=== PATIENT | male | born 1945 | race Caucasian/White ===

== ENCOUNTER 2018-01-15 12:12 | Inpatient (IN) | payer MEDICARE, BC ==
[2018-01-15] MEDS ORDERED: Lidocaine 1% (PF) 30 ML VIAL ONE (12:14)
[2018-01-15] MEDS ORDERED: Furosemide 40 MG/4 ML VIAL ONE (12:22)
[2018-01-15] MEDS ORDERED: niCARdipine 20MG In NaCl 20 MG/200 ML BAG ONE (12:22)
[2018-01-15] MEDS ORDERED: Morphine 4 MG/ML VIAL ONE (12:24)
[2018-01-15 12:32] LABS: #Basophils 0.1 thou/uL (0.0-0.2); #Eosinphils 0.5 thou/uL (0.0-0.7); #Monocytes 1.1 thou/uL (0.11-0.59); #Neutrophils 7.4 thou/uL (1.40-6.50); %Basophils 0.9 % (0.0-1.0); %Eosinophils 3.9 % (0.0-10.0); %Lymphocytes 30.3 % (21.0-51.0); %Monocytes 8.4 % (0.0-10.0); %Neutrophils 56.5 % (42.0-75.0); Hemoglobin 14.8 g/dL (14.0-18.0); Mean Corpuscular HGB CONC 31.7 g/dL (32.0-36.0); Mean Corpuscular Hemoglobin 29.2 pg (27.0-31.0); Mean Corpuscular Volume 92.3 fl (80.0-94.0); Mean Platelet Volume 6.8 fL (7.4-10.4); Platelet Count 412 thou/uL (130-400); RBC Distribution Width 14.4 % (11.5-14.5); Red Blood Cell (RBC) Count 5.07 mill/uL (4.70-6.10); White Blood Cell (WBC) Count 13.1 thou/uL (4.8-10.8)
[2018-01-15 12:37] LABS: PTT 27.4 SEC (22.9-36.1); Prothrombin Time 13.2 SEC (12.0-14.7)
[2018-01-15 12:43] LABS: Base Excess-Venous -3.2 mmol/L (0 (+/- 2.5)); Bicarbonate (HCO3v) 23.4 mmol/L (1.0-85.0); CO2 Tension (PvCO2) 46.3 mmHg (41.0-51.0); Calcium, Ionized 1.14 mmol/L (1.12-1.32); Hemoglobin - Calc 17.1 g/dL (12.0-18.0); O2 Tension (PvO2) 39.3 mmHg (35.0-45.0); Potassium 5.1 mmol/L (3.4-4.7); T. Carbon Dioxide 24.8 mmol/L (1.0-85.0); pH (Venous) 7.312 (7.35-7.45); vO2 Saturation-calc 68.7 % (94-98)
[2018-01-15 12:45] LABS: ALT (SGPT) 13 U/L (8-55); AST (SGOT) 26 U/L (5-34); Albumin 4.3 g/dL (3.4-4.8); Alkaline Phosphatase 122 U/L (40-150); Anion Gap 10 mmol/L (10-20); BUN (Urea Nitrogen) 16 mg/dL (8.4-25.7); Bilirubin, Total 0.2 mg/dL (0.2-1.2); CK (CPK) 45 U/L (30-200); Calc. Creatinine Clearance 0 mL/min (70-130); Calcium 9.6 mg/dL (7.8-10.44); Carbon Dioxide 24 mmol/L (23-31); Chloride 108 mmol/L (98-107); Estimated GFR-MDRD Greater than 90; Globulin 3.7 g/dL (2.4-3.5); Glucose 188 mg/dL (80-115); Potassium 4.4 mmol/L (3.5-5.1); Sodium 138 mmol/L (136-145)
[2018-01-15 12:49] LABS: CKMB 2.8 ng/mL (0-6.6); Troponin I 0.019 ng/mL (< 0.028)
--- NOTE | 2018-01-15 13:09 | RAD ---
PORTABLE CHEST ONE VIEW: Date: 01-15-18 Time: 12:18 p.m. History: Chest pain. FINDINGS/IMPRESSION: Comparison is made with exam of 03-05-17. The heart is enlarged. The lungs are well expanded with bilateral infiltrates/pulmonary vascular ashley estion. No pneumothoraces or large effusions are seen. POS: C
--- NOTE | 2018-01-15 13:09 | PDOC.FPRHP ---
- History of Present Illness Chief Complaint: SOB History of Present Illness: Patient is a 72 year old male with PMHx of CAD with stent placement, COPD, HTN, and a recent AL in Sep 2017 who awoke this morning with SOB, diaphoresis and dyspnea on exertion. His symptoms began around 10 o'clock this morning and only improved with while in transit via EMS where he received duonebs. The patient states that his SOB is better when sitting upright, worse with lying down and he has been coughing up some clear sputum that has worsened since yesterday. He also endorses rhinorrhea over the past couple of days. The patient also suffers from chronic chest pain which is centrally located and sometimes radiates to the L shoulder. His pain is typically present most days and worse with light activity. For his chronic chest pain the patient uses daily nitro patches x3 and was observed to have as many as 7 placed upon arrival to the ED. The patient denies recent history of illness, fever, chills, nausea, vomiting, dysuria, PND, unexpected weight change, constipation, diarrhea, hematochezia. The patient was given 2 duonebs and magnesium by EMS ED Course: The patient was seen in the ED by Dr. David and was given morphine 2mg IVP, Lasix 40mg IVP, and started on a Cardene gtt. - Allergies/Adverse Reactions Allergies Allergy/AdvReac Type Severity Reaction Status Date / Time No Known Allergies Allergy Verified 01/15/18 15:53 - Home Medications Medication Instructions Recorded Confirmed Type Benzonatate 200 mg PO TID PRN 08/11/16 01/15/18 History Finasteride 5 mg PO DAILY 08/11/16 01/15/18 History HYDROcodone/Acetaminophen 1 tab PO Q6HR 08/11/16 01/15/18 History [Hydrocodon-Acetaminophn 10-325] Nitroglycerin [Nitro-Dur Patch] 0.6 mg TOP TID 08/11/16 01/15/18 History Tamsulosin HCl 0.4 mg PO DAILY 08/11/16 01/15/18 History Venlafaxine HCl [Effexor] 150 mg PO BID 08/11/16 01/15/18 History traZODone HCl [Trazodone HCl] 400 mg PO HS 08/11/16 01/15/18 History Aspirin [Aspirin Chewable Tablet] 81 mg PO DAILY 08/12/16 01/15/18 History Furosemide [Lasix] 20 mg PO BID 08/12/16 01/15/18 History Ranolazine [Ranexa] 1,000 mg PO BID 08/12/16 01/15/18 History Finasteride [Proscar] 5 mg PO DAILY 01/15/18 01/15/18 History - History PMHx: 1. CAD s/p AL (2013) 2. HTN 3. COPD 4. HFpEF 5. Anxiety 6. Depression 7. Chronic Back Pain 8. IBS 9. BPH 10. Insomnia 11. GERD PSHx: 1. Cardiac stents x1 2. Sinus sx FHx: Mother - liver cancer Father - Kidney disease Social: Smokes 1ppd cigarettes for the past 50 years. Denies alcohol or drug use. Is . PCP: Ruchi at [facility] - Review of Systems General: denies: fever/chills, weight/appetite/sleep changes Eyes: denies: eye pain, vision changes ENT: reports: rhinorrhea. denies: nasal congestion Respiratory: reports: cough, shortness of breath, exercise intolerance Cardiovascular: reports: chest pain, orthopnea. denies: edema Gastrointestinal: denies: nausea, vomiting, diarrhea, abdominal pain Genitourinary: denies: incontinence, dysuria Skin: denies: rashes, lesions Musculoskeletal: reports: pain (chronic back pain). denies: tenderness Neurological: denies: numbness, syncope - Vital signs BP: 122/77 HR: 104 RR: 33 Tmax: 98.1 Pox: 96% on BiPAP Wt: 57.15kg - Physical Exam Constitutional: awake, alert and oriented, well developed, other (on BiPAP with some respiratory distress) HEENT: normocephalic and atraumatic, PERRLA, EOMI, conjunctiva clear, grossly normal vision, grossly normal hearing, normal nasal mucosa, MMM Neck: supple, trachea midline, no LAD -Heart: tachycardic, systolic and diastolic murmur, no gallops or rubs, no peripheral edema -Lungs: CTAB, poor air movement on BiPAP, no wheezes or rhonchi Abdomen: soft, non-tender, bowel sounds present, no masses/distention Musculoskeletal: normal structure, normal tone, ROM grossly normal Neurological: no focal deficit, CN II-XII intact Skin: good turgor, capillary refill <2 seconds Psychiatric: normal mood and affect, good judgment and insight, intact recent and remote memory FMR H&P: Results - Labs Result Diagrams: 01/15/18 12:18 01/15/18 12:18 Lab results: WBC 13.1 thou/uL (4.8-10.8) H 01/15/18 12:18 Hgb 14.8 g/dL (14.0-18.0) 01/15/18 12:18 Hct 46.8 % (42.0-52.0) 01/15/18 12:18 MCV 92.3 fl (80.0-94.0) 01/15/18 12:18 Plt Count 412 thou/uL (130-400) H 01/15/18 12:18 Neutrophils % 56.5 % (42.0-75.0) 01/15/18 12:18 VBG pCO2 46.3 mmHg (41.0-51.0) 01/15/18 12:26 VBG pO2 39.3 mmHg (35.0-45.0) 01/15/18 12:26 Sodium 138 mmol/L (136-145) 01/15/18 12:18 Potassium 4.4 mmol/L (3.5-5.1) 01/15/18 12:18 Chloride 108 mmol/L (98-107) H 01/15/18 12:18 Carbon Dioxide 24 mmol/L (23-31) 01/15/18 12:18 BUN 16 mg/dL (8.4-25.7) 01/15/18 12:18 Creatinine 0.70 mg/dL (0.6-1.3) 01/15/18 12:18 Glucose 188 mg/dL (80-115) H 01/15/18 12:18 Calcium 9.6 mg/dL (7.8-10.44) 01/15/18 12:18 Total Bilirubin 0.2 mg/dL (0.2-1.2) 01/15/18 12:18 AST 26 U/L (5-34) 01/15/18 12:18 ALT 13 U/L (8-55) 01/15/18 12:18 Alkaline Phosphatase 122 U/L (40-150) 01/15/18 12:18 Creatine Kinase 45 U/L (30-200) 01/15/18 12:18 CK-MB (CK-2) 2.8 ng/mL (0-6.6) 01/15/18 12:18 Serum Total Protein 8.0 g/dL (5.8-8.1) 01/15/18 12:18 Albumin 4.3 g/dL (3.4-4.8) 01/15/18 12:18 - EKG Interpretation EKG: sinus tach, age indetermined septal infarct - Radiology Interpretation Chest x-ray Status: image reviewed by me, report reviewed by me Additional comment: cardiomegaly, bilateral pulmonary vascular congestion FMR H&P: A/P - Problem List (1) Acute respiratory failure with hypoxia Status: Acute Code(s): J96.01 - ACUTE RESPIRATORY FAILURE WITH HYPOXIA (2) Acute on chronic congestive heart failure Status: Acute Code(s): I50.9 - HEART FAILURE, UNSPECIFIED Qualifiers: Heart failure type: diastolic Qualified Code(s): I50.33 - Acute on chronic diastolic (congestive) heart failure (3) Hypertensive urgency Status: Acute Code(s): I16.0 - HYPERTENSIVE URGENCY (4) COPD exacerbation Status: Acute Code(s): J44.1 - CHRONIC OBSTRUCTIVE PULMONARY DISEASE W (ACUTE ) EXACERBATION (5) Anxiety Status: Acute Code(s): F41.9 - ANXIETY DISORDER, UNSPECIFIED (6) Chronic back pain Status: Acute Code(s): M54.9 - DORSALGIA, UNSPECIFIED; G89.29 - OTHER CHRONIC PAIN Qualifiers: Back pain location: low back pain Back pain laterality: unspecified Sciatica presence: unspecified whether sciatica present Qualified Code(s): M54.5 - Low back pain; G89.29 - Other chronic pain; G89.29 - Other chronic pain (7) Hypertension Status: Acute Code(s): I10 - ESSENTIAL (PRIMARY) HYPERTENSION Qualifiers: Hypertension type: essential hypertension Qualified Code(s): I10 - Essential (primary) hypertension (8) Multiple vessel coronary artery disease Status: Acute Code(s): I25.10 - ATHSCL HEART DISEASE OF [place] CORONARY ARTERY W/O ANG PCTRS (9) Tobacco abuse Status: Acute Code(s): Z72.0 - TOBACCO USE (10) GERD (gastroesophageal reflux disease) Status: Acute Code(s): K21.9 - GASTRO-ESOPHAGEAL REFLUX DISEASE WITHOUT ESOPHAGITIS Qualifiers: Esophagitis presence: without esophagitis Qualified Code(s): K21.9 - Gastro -esophageal reflux disease without esophagitis - Plan Acute Hypoxic Respiratory Failure likely 2/2 COPD exacerbation caused by URI that has ultimately caused the patient to go into HTN urgency and a CHF exacerbation The patient is now overloaded in his lungs and requiring BiPAP. His breathing status improved some with duonebs and he got 40 mg IV lasix in the ED and was placed on BiPAP. He is now satting 100%. -Admit to IMCU -Consult pulm, appreciate recs -Continue BiPAP -Solumedrol -Duonebs -Lasix -Monitor O2 sats Acute on Chronic CHF Exacerbation Patient has h/o HFpEF -Echo -Lasix 40mg IV BID, will consider titrating down tomorrow if patient's breathing status continues improving -Strict I/O's -Fluid Restrict -Daily Weights COPD Exacerbation -Solumedrol -Duonebs HTN Urgency SBP initially 230's in the ED. Patient was placed on a cardene gtt. This has been d/c'd as pt BP has improved significantly. -Monitor BP closely -Hydralazine prn SBP > 180 CAD s/p AL Patient has severe CAD. There was initially concern for STEMI, but Dr. Mccormick with Cardiology came down to see the pt in the ED and said that it wasn't a STEMI. The patient has daily angina and wears 3 nitro patches. CE negative x1 -Cards has been consulted, appreciate recs -Aspirin OK while pt on BiPAP -Continue nitro -Trend CE GERD -continue protonix Chronic Back Pain -Morphine equivalent for patient's home norco dose prn -transition back to norco once pt off BiPAP Anxiety/Depression Patient appears stable -Restart home meds once off BiPAP Tobacco Abuse -Cessation counseling -nicoderm patch VTE Ppx: Lovenox Code Status: DNR Disposition/LOS: Admit to IMCU, length of stay likely greater than 2 days FMR H&P: Upper Level - Pertinent history 72 yo male with signicant hx of CAD, COPD, CHF, current smoker presents with acute worsening of chronic sob and chest pain. Patient has complained of cough. He at baseline since his last AL in September gets daily CP with mild exertion with SOB. CIARA- cardiac cath with Dr. Padilla who did not find stentable disease. pending outpatient consultation with Dr. Bowser for surgery, but likely not good candidate if patient continues to smoke. - Pertinent findings Gen: thin, cachectic appearing male, in respiratory distress but comfortable on Bipap, HEENT: NC/AT, TYREL,EOMI, MMM Resp: Patient has poor air movement on auscultation, no rales, rhonchi or crackles. CV: RRR, normal S1, S2, no murmur ABD: Soft nontender, nondistended Extremities: no edema, pulses 2+ Psych: calm, normal affect and mood extremties- thin extremities, no edema. Neuro- CN normal by observation and strength and balance intact. can transfer to bedside commode with assistance - Plan Date/Time: 01/15/18 4529 I, Lynette Hopper, have evaluated this patient and agree with findings/plan as outlined by rn international resident. Pertinent changes/additions are listed here. 1. Acute Hypoxic Respiratory Failure- Likely COPD but CHF and CAD are still considerations. Will continue steroids and duonebs. will trend troponins, consult pulm, BNP pending, continue bipap which has improved symptoms. will repeat CXR tomorrow. I do not see sufficient evidence for pna to start abx. Does have some pulmonary edema. 2. COPD- steroids and duonebs. Will urge to stop smoking director long term care. 3. CHF exacerbation- it has been at least year since last echo. will repeat and will add gentle IV diuresis. 4. HTN- Before treatment for above, patient had elevated HTN in the 200s and came down rapidly with cardine drip. Now normal witout drip. Will monitor. 5. Severe CAD- patient had last confirmed AL in september and was not a stent candidate. He is not currently a surgical candidate because of smoking status, but still plans to see Dr. Bowser to discuss outpatient. Dr. Mccormick has been consulted by ED because of concern for STEMI initiallly in transport. Will trend tops. 6. Chronic back pain- Will continue home opoids as IV morphine equivalents. 7. Insomnia- will hold chronic trazadone until respiratory distress improves. Attending Addendum - Attending Addendum Date/Time: 01/15/182048 I personally evaluated the patient and discussed the management with Dr. Pagan and Dr. Hopper I agree with the History, Examination, Assessment and Plan documented above with any addition or exceptions noted below. 72 yo male with multiple medical conditions presents via EMS for respiratory failure Patient reports acute SOB this morning upon awaking. Over the past few days reports cough and congestion. VS reviewed. Labs reviewed. Imaging reviewed. On BiPAP. systolic and diastolic murmur difficult to localize. Increase work of breathing. Bilateral wheezing and crackles at bases. 1. Acute hypoxic respiratory failure: Now on Bipap. Will continue. Wean as able. Admit to IMCU. 2. COPD exacerbation: Continue breathing treatments and steroids. Likely viral. Trend labs. 3. HTN urgency: Demand on EKG. Cards consulted in ER. Will follow alongside. s/ p CCB drip. BP now stable. Asymptomatic. 4. Acute on chronic HF: ECHO. Lasix. Continue home meds. Strict I/Os. Cards following. 5. Endstage CAD: Severe disease. Medical treatment only. Discuss long acting nitro with cards. Continue home meds. Adjust as needed. Demetrio
[2018-01-15 15:26] VITALS: BMI 19.1
[2018-01-15 15:35] VITALS: BP 157/87; TEMP 97.6
[2018-01-15] MEDS ORDERED: hydrALAZINE 20 MG/ML VIAL SLOW IVP PRN (15:41)
[2018-01-15] MEDS ORDERED: HYDROcodone/Acetaminophen 10/325 mg Tablet PO PRN (15:41)
[2018-01-15] MEDS ORDERED: Nitroglycerin 0.6mg/Hour PATCH TOP SCH (15:41)
[2018-01-15] MEDS ORDERED: Aspirin 300 MG Suppository PR SCH (16:00)
--- NOTE | 2018-01-15 16:14 | CON ---
DATE OF CONSULTATION: 01/15/2018 SERVICE: Pulmonary Medicine REASON FOR CONSULTATION: IMCU patient. HISTORY OF PRESENT ILLNESS: Patient is a 72-year-old white male. He started feeling a little bit winded last night. He woke up in the middle of the night little bit acutely short-winded. He sat up on the side of the bed and used some inhalers and it did seem to do him much good. He then presented to the emergency department. He was placed on noninvasive ventilation for a brief period of time, but it was subsequently discontinued. He was tucked into the IM after steroids, nebulized medications and antibiotics. The patient actually feels much improved. He is very happy with the progress he has made in a very short period of time. He is able to get out of bed and transition himself to the bathroom and back to bed. When he does this, he temporarily abandons his oxygen therapy and he does not seem to have any issue with this. He denies having any fevers or chills. No recent sick contacts. He is coughing up a little bit of white phlegm, but there is no significant color to it. PAST MEDICAL HISTORY: 1. Coronary artery disease. 2. Hypertension. 3. Dyslipidemia. 4. He does not have significant Chronic obstructive pulmonary disease on PFTs. 5. Emphysema, minimal. 6. Anxiety disorder. 7. Major depressive disorder. 8. Chronic back pain. 9. Irritable bowel syndrome. 10. Benign prostatic hypertrophy. 11. Insomnia. 12. Gastroesophageal reflux disease. PAST SURGICAL HISTORY: 1. Percutaneous coronary intervention. 2. Sinus surgery. FAMILY HISTORY: Noncontributory. SOCIAL HISTORY: He continues to smoke a pack of cigarettes on a daily basis. He has got greater than [id number] history of smoking. Denies any alcohol or illicit drugs. He is currently and has no exposure to chemicals, dust asbestos or tuberculosis. ALLERGIES: No known drug allergies. MEDICATIONS: List of his inpatient medications was reviewed. Multiple updates were made. REVIEW OF SYSTEMS: General, head, ears, eyes, nose, throat, cardiovascular, cardiovascular, respiratory, GI, , musculoskeletal, neurologic and skin is negative except as mentioned in the HPI. PHYSICAL EXAMINATION: VITAL SIGNS: Afebrile, pulse 82, blood pressure 146/83, respirations 16, saturation 100% on 2 liters nasal cannula. GENERAL: The patient is awake, alert, no apparent distress. LUNGS: There is really excellent air entry. Dependent crackles are present. There is no prolonged expiratory phase or wheezing present. HEART: Normal rate, regular. ABDOMEN: Soft, nontender, nondistended. Bowel sounds are positive. MUSCULOSKELETAL: No cyanosis or clubbing. There is no pitting in the bilateral lower extremities. NEUROLOGIC: Grossly nonfocal. LABORATORY DATA: WBC 13.1, hemoglobin 14.8, platelets 412,000. INR 1.0. A pH 7.31, pCO2 of 46. Basic metabolic profile is essentially unremarkable except for potassium of 5.1. There was a point of draw. The laboratory draw was 4.4. Liver function studies are essentially unremarkable. Troponin is negative x1. BNP is elevated at 650.4. Urinalysis is positive for proteinuria and a little bit of white blood cells, but there is no leukocyte esterase or nitrites present. IMAGIN. Pulmonary function studies from 2014 demonstrated no evidence of obstructive airflow limitation. His total lung capacity, FRC and RV were all within the normal limits. Diffusion capacity at that time was minimally impaired. 2. Echocardiogram from 2013 demonstrates normal ejection fraction. Resting tachycardia is present. Mild valvular abnormalities were otherwise identified. Left atrial dilation was noted. 3. Chest x-ray demonstrates fluid in the fissure and interstitial pattern of edema. There is a large gastric bubble. Diaphragms bilaterally have decent contour. ASSESSMENT: 1. Acute hypoxic respiratory failure, resolved. 2. Acute on chronic diastolic heart failure, suspected. 3. Elevated BNP. 4. Hypertensive urgency. 5. Coronary artery disease. 6. Chronic back pain. PLAN: We will give the patient his p.r.n. back pain medication. Agree with echocardiogram and repeat troponins. The patient does not have chronic obstructive pulmonary disease. We confirmed this on pulmonary function studies from 3 years ago. At that time, his pulmonary function studies were essentially normal. He does have minimal emphysema on CT scan that was done several years ago. That being said, his presentation and characteristics on chest x-ray as well as laboratories are most consistent with volume overload state. As such, antibiotics, nebulized medications and steroids will all be interrupted. Pulmonary or Critical Care will continue to follow along as long as he remains in this location, but from my perspective, he can be transitioned out of the [facility] 70 minutes have been devoted to this patient in various activities. I personally reviewed all imaging studies and laboratory data noted within this document. For fifty percent of this time, I was interacting with the patient at the bedside or coordinating care with the care team. For the remainder of the time I was immediately available to the patient in the hospital unit. ANDRE
[2018-01-15] MEDS: Nicotine 14 MG PATCH TD SCH ×2 (16:17→16:22)
[2018-01-15] MEDS: Furosemide 40 MG/4 ML VIAL SLOW IVP SCH ×2 (16:18→16:23)
[2018-01-15 16:43] LABS: Lactic Acid 2.1 mmol/L (0.5-2.2)
[2018-01-15 17:16] LABS: Troponin I 0.024 ng/mL (< 0.028)
--- NOTE | 2018-01-15 22:17 | DIS-2 ---
DATE OF ADMISSION: 01/15/2018 DATE OF DISCHARGE: 01/15/2018 RESIDENT: Kathrine Pagan M.D. ATTENDING: Anitra Leggett M.D. CONSULTATIONS: Dr. Kris Brasher with Pulmonology and Dr. Mccormick with Cardiology. PROCEDURES: None. IMAGING: Chest x-ray showed cardiomegaly and bilateral pulmonary vascular congestion. PRIMARY DIAGNOSES: 1. Acute hypoxic respiratory failure. 2. Acute on chronic diastolic congestive heart failure exacerbation. 3. Hypertensive urgency. 4. Mild chronic obstructive pulmonary disease exacerbation. SECONDARY DIAGNOSES: 1. Coronary artery disease, status post myocardial infarction. 2. Gastroesophageal reflux disease. 3. Chronic back pain. 4. Anxiety. 5. Depression. 6. Tobacco abuse. DISCHARGE MEDICATIONS: 1. Finasteride 5 mg p.o. daily. 2. Aspirin 81 mg p.o. daily. 3. Benzonatate 200 mg p.o. t.i.d. p.r.n. cough. 4. Lorenzo 10/325 one tab p.o. q.6 hours p.r.n. pain. 5. Lasix 20 mg p.o. b.i.d. 6. Tamsulosin 0.4 mg p.o. daily. 7. Ranexa 1000 mg p.o. b.i.d. 8. Trazodone 400 mg p.o. at bedtime. 9. Venlafaxine 150 mg p.o. b.i.d. 10. Nitroglycerin 0.6 mg topical t.i.d. DISCONTINUED MEDICATIONS: None. HISTORY OF PRESENT ILLNESS AND HOSPITAL COURSE: This is a 72-year-old male with a past history of CA D and diastolic CHF, who presented in acute hypoxic respiratory failure. The patient was satting 88% with oxygen by EMS. The patient initially required BiPAP for stabilization in the ER. The patient had received DuoNeb en route with EMS, as well as 40 mg IV Lasix by the EMS. The patient showed sign ificant improvement with these interventions. The patient initially had elevated blood pressures wit h systolics up to the 230s and was started on Cardene drip. His blood pressure responded very quickl y and then the Cardene drip was discontinued. The patient was admitted to the [facility] on BiPAP and the BiPAP was stopped shortly after admission and at this point, the patient insisted on leaving AMA. Th e patient reported that he felt better and did not want to stay any longer. DISPOSITION: Guarded. DISCHARGE INSTRUCTIONS: Unable to give any as the patient left AMA; however, the patient does have a followup appointment scheduled already with Dr. Hopper at [facility] on 01/16/2018.
[2018-01-16] MEDS ORDERED: Furosemide 40 MG/4 ML VIAL SLOW IVP SCH (06:00)
[2018-01-16] MEDS ORDERED: Enoxaparin Sodium 40 MG/0.4 ML SYRINGE SC SCH (09:00)
[2018-01-16] MEDS ORDERED: Aspirin 300 MG Suppository PR SCH (09:00)
[2018-01-16] MEDS ORDERED: Pantoprazole 40 MG VIAL IVP SCH (09:00)
== END 2018-01-15 17:40 | disposition left against medical advice (07) | DRG 291 ==
LOC: ERS 12:12 → IMCU/EMU 13:23
PROVIDERS: ADMIT Family Medicine; ATTEND Family Medicine
DX: I11.0 Hypertensive heart disease with heart failure (principal); J96.01 Acute respiratory failure with hypoxia; J44.1 Chronic obstructive pulmonary disease with (acute) exacerbation; I50.33 Acute on chronic diastolic (congestive) heart failure; I16.0 Hypertensive urgency; I25.10 Atherosclerotic heart disease of native coronary artery without angina pectoris; I25.2 Old myocardial infarction; K21.9 Gastro-esophageal reflux disease without esophagitis; G89.29 Other chronic pain; F41.9 Anxiety disorder, unspecified; F32.9 Major depressive disorder, single episode, unspecified; F17.210 Nicotine dependence, cigarettes, uncomplicated; E78.5 Hyperlipidemia, unspecified; G47.00 Insomnia, unspecified; N40.0 Benign prostatic hyperplasia without lower urinary tract symptoms; M54.5 Low back pain; Z66 Do not resuscitate
CPT/HCPCS: 36415; 71045; 80053; 82330; 82550; 82553; 82803; 83605; 83880; 84484; 85025; 85610; 85730; 86850; 86900; 86901; 93005; 94660; 96374; 96375; J1644; J1940; J2001; J2270

== ENCOUNTER 2018-02-28 08:06 | Outpatient (CLI) | payer MEDICARE, BC, MEDICAID ==
--- NOTE | 2018-02-28 10:44 | MRI ---
MRI LUMBAR SPINE WITHOUT CONTRAST: INDICATIONS: Low back pain. COMPARISON: MRI lumbar spine dated August 2005. That exam revealed a small central disk protrusion at L5-S1. TECHNIQUE: Multiplanar, multisequence imaging of the lumbar spine obtained. FINDINGS: Lumbar vertebrae maintain normal height and alignment. There is mild loss of disk space at L5-S1 wit h degenerative disk changes. Superior endplate deformity at S1. The other disk spaces are preserved , although degenerative disk signal changes are noted at all levels of the lumbar spine. L1-L2: Mild disk bulge flattens the anterior thecal sac. Mild facet arthrosis and hypertrophy. Min imal central canal stenosis. L2-L3: Mild diffuse disk bulge flattens the anterior thecal sac. Facet arthrosis with mild facet an d ligamentous hypertrophy. Mild central canal stenosis. L3-L4: Mild disk bulge mildly flattens the thecal sac. Mild facet and ligamentous hypertrophy. Mil d central canal stenosis. L4-L5: Mild disk bulge. Facet and ligamentous hypertrophy is more prominent. Mild to moderate cent ral canal stenosis. L5-S1: Broad-based disk bulge. Small central protrusion is again seen, which abuts the anterior the mara sac. Mild facet arthrosis with mild facet and ligamentous hypertrophy. Mild central canal steno sis at this level does not appear significantly changes from the prior exam. Mild bilateral foramina l narrowing due to diffuse disk bulge and facet hypertrophy. Foraminal encroachment slightly more pr ominent on the left. IMPRESSION: 1. At L5-S1, broad-based disk bulge with small central protrusion and evidence of small annular fiss ure. This has a similar appearance to the prior MRI from 2004. The findings at this level are descr ibed above. 2. Mild disk bulges at the other levels with mild central canal stenosis, as described above. 3. There are two 3 to 4 cm probable cystic lesions involving the left kidney. Suggest confirmation with renal ultrasound. 4. There are atherosclerotic changes in the abdominal aorta, and there is mild aneurysmal dilatation distally with aortic measurements approaching 3 cm. There is also ectasia of the proximal abdominal aorta, with measurements up to 3.2 cm. Recommend further evaluation wit abdominal aortic ultrasound or CT. POS: [facility]
== END 2018-02-28 08:07 | disposition home or self-care (01) ==
LOC: MRI 08:06
PROVIDERS: ATTEND Family Medicine
DX: M48.061 Spinal stenosis, lumbar region without neurogenic claudication (principal); M51.26 Other intervertebral disc displacement, lumbar region; M51.86 Other intervertebral disc disorders, lumbar region; N28.89 Other specified disorders of kidney and ureter; I70.0 Atherosclerosis of aorta; I71.4 Abdominal aortic aneurysm, without rupture
CPT/HCPCS: 72148

== ENCOUNTER 2018-06-08 10:15 | Outpatient (CLI) | payer MEDICARE, BC, MEDICAID ==
[2018-06-08 10:45] LABS: Estimated GFR-MDRD - POC Greater than 90
--- NOTE | 2018-06-08 13:29 | CT ---
CT ABDOMEN WITH AND WITHOUT IV CONTRAST: CT PELVIS WITH IV CONTRAST: 06/08/2018 HISTORY: Abdominal pain, not otherwise specified. COMPARISON: 07/10/2016 FINDINGS: There is a moderate sized right pleural effusion, incompletely imaged, with associated consolidation throughout the lung base, probably related to passive atelectasis, although pneumonia at the right trudy ng base is not excluded. The pleural effusion has increased from the prior exam in 2016. There is a lso a suggestion of mild pleural thickening on the right. This is likely reactive. Left renal cysts are again seen with stable subcentimeter, npc-swmmn-jk-characterize, hypodense lesio ns in each kidney. There is dilatation of the extrahepatic common duct, measuring 11 mm, of uncertain etiology. There i s only minimal dilatation of the most proximal intrahepatic bile ducts. Calcified granulomata are seen in the spleen. The pancreatic duct is minimally prominent, but the pancreas otherwise has a normal CT appearance. T he bilateral adrenal glands have a normal CT appearance. There is atherosclerotic plaque and atherosclerotic vascular calcification seen in the abdominal aort a and involving the iliac arteries. The prostate gland remains heterogeneous and enlarged, measuring 5.4 cm in transverse dimensions. There is a lobulated appearance of the superior right lateral aspect of the urinary bladder, which ex tends and abuts the region of the right inguinal canal, but does not extend into the inguinal canal. This is a stable finding. There is persistent mild thickening of the urinary bladder, which could b e secondary to an enlarged prostate. There has been no other interval change when compared to the prior study. IMPRESSION: 1. Interval enlargement of right pleural effusion with a moderate sized right pleural effusion prese nt. There is consolidation at the right lung base, most likely attributable to passive atelectasis. Pneumonia cannot be entirely excluded. In addition, there is mild asymmetric thickening along the r ight hemidiaphragm, likely related to pleural thickening, which may be reactive from the pleural effu giuliana. 2. Left renal cyst with stable, subcentimeter, uwl-vmtms-vi-characterize, hypodense lesions in each kidney. 3. Dilatation of the extrahepatic common duct, measuring 11 mm. The exact etiology for biliary duct al dilatation is uncertain. There is only minimal dilatation of the most proximal intrahepatic ducts . 4. Heterogeneous and enlarged prostate gland. 5. Lobulated appearance of the urinary bladder, as described above, with thickening of the mays of the urinary bladder, which could be related to enlargement of the prostate gland. 6. Prominent atherosclerotic plaque and vascular calcifications in the abdominal aorta and iliac art eries. POS: [facility]
[2018-06-08] MEDS ORDERED: Iopamidol 370 76% 100 ML VIAL ONE (14:19)
== END 2018-06-08 10:16 | disposition home or self-care (01) ==
LOC: CT 10:15
PROVIDERS: ATTEND Family Medicine
DX: R10.9 Unspecified abdominal pain (principal); J90 Pleural effusion, not elsewhere classified; J98.6 Disorders of diaphragm; N28.1 Cyst of kidney, acquired; N40.0 Benign prostatic hyperplasia without lower urinary tract symptoms; I70.8 Atherosclerosis of other arteries; I70.0 Atherosclerosis of aorta; N32.89 Other specified disorders of bladder; K83.8 Other specified diseases of biliary tract; N28.9 Disorder of kidney and ureter, unspecified
CPT/HCPCS: 74178; 82565

== ENCOUNTER → 2018-06-29 | Day surgery (SDC) | payer MEDICARE, BC, MEDICAID ==
[~2018-06-29] MED LIST: Lidocaine 2% 10 ML INJ ONE; Lidocaine 2% PF 5 ML VIAL ONE
--- NOTE | 2018-06-29 08:29 | HP ---
DATE OF SERVICE: 06/28/2018 SERVICE: Pulmonary Medicine. REASON FOR VISIT: Pleural effusion. HISTORY OF PRESENT ILLNESS: The patient is a 73-year-old male with past medical history significant for heart disease. He has known mitral regurgitation, and diastolic dysfunction. He was in his usual state of health when he started having increasing shortness of breath. Diagnostic workup revealed an effusion on the right side which was new. He has never had a thoracentesis on the right side before. He denies any current fevers or chills. He is coughing a little bit, but not bringing up much sputum. Otherwise, he is in his usual state of health. He has been having some stability issues, and increasing weakness. He is developing increasing cachexia and has been losing quite a bit of weight. Previously, we saw him because of a pulmonary mass that resolved. He then had a pulmonary nodule showing up in a completely different location. We are following that through time. The last time I saw this patient was in 01/2016 before he was lost to follow. PAST MEDICAL HISTORY: 1. Chronic diastolic heart failure. 2. Mitral regurgitation. 3. Hypertension. 4. Dyslipidemia. 5. Tobacco abuse, ongoing. 6. Coronary artery disease. 7. Benign prostatic hypertrophy. 8. Major depressive disorder. 9. Chronic back pain. 10. Emphysema without significant obstructive lung disease on pulmonary function studies. 11. Anemia. PAST SURGICAL HISTORY: 1. Cardiac catheterization x4 with multiple percutaneous coronary interventions. 2. Sinus surgery x2. FAMILY HISTORY: Diabetes, kidney disease. SOCIAL HISTORY: The patient has a greater than a [id number] history of smoking and continues to smoke roughly half pack on a daily basis. Denies any alcohol or illicit drug use. He has no exposure to chemicals, dust asbestos or tuberculosis. ALLERGIES: No known drug allergies. MEDICATIONS: 1. Aspirin 81 mg p.o. daily. 2. Lasix 40 mg p.o. daily. 3. Effexor. 4. Nitroglycerin tablets under the tongue most days. 5. Vicoprofen one tab p.o. q.6 hours as needed. REVIEW OF SYSTEMS: General, head, ears, eyes, nose, throat, cardiovascular, respiratory, GI, , musculoskeletal, neurologic and skin is negative except as mentioned in the HPI. PHYSICAL EXAMINATION: VITAL SIGNS: Afebrile, pulse 95, respirations 14, saturation 91% on room air. GENERAL: Patient is awake, alert, no apparent distress. LUNGS: Decreased air entry at the right base. There is good air entry on the left. There is some deep pending crackles present in the left lung. No prolonged expiratory phase or wheezing is identified. HEART: Normal rate, regular. ABDOMEN: Soft, nontender, nondistended. Bowel sounds are positive. MUSCULOSKELETAL: No cyanosis or clubbing. There is no pitting in the bilateral lower extremities. NEUROLOGIC: Grossly nonfocal. IMAGING: CT of the abdomen and pelvis demonstrates a pleural effusion of the right base which is new. There is no effusion on the left. There is a minimal emphysematous change present. I do not see any large masses identified. ASSESSMENT: 1. Pleural effusion, not otherwise specified. 2. Emphysema without significant obstructive lung disease on pulmonary function studies. 3. Pulmonary nodules, previously identified. 4. Obstructive sleep apnea, suspected. 5. Tobacco abuse, ongoing. 6. Isolated low diffusion capacity, in keeping with his emphysema. DISCUSSION AND PLAN: The patient is going to undergo a thoracentesis in the morning. We will have him hold his aspirin. He will return to clinic in 2 weeks with a repeat CT of the chest so that we can follow up these previously noted nodules. Tobacco cessation counseling has been provided, but once again, the patient had expressed absolutely no willingness to quit. As such, no modalities for quitting will be offered currently. In 2 weeks, we will review some of these laboratories. Obviously, we want to see if this is transudate or an exudate and if is an exudate, we will not exclude the possibility of infection, or malignancy. Long acting medications for COPD will be considered at our follow-up appointment. 60 minutes have been devoted to this patient in various activities, unbundled from the procedure. I personally reviewed all imaging studies and laboratory data noted within this document. For fifty percent of this time, I was interacting with the patient at the bedside or coordinating care with the care team. For the remainder of the time I was immediately available to the patient in the hospital unit. ANDRE
[2018-06-29 11:06] LABS: BF Color Yellow; Body Fluid Source PLEURAL FLUID; Clarity Hazy (Clear)
[2018-06-29 11:07] LABS: BF RBC Count - Manual 298 /cumm; Tube # 2; WBC/NonHematic-Auto 495 /cumm
[2018-06-29 11:25] LABS: BF Segmented Neutrophils 51 %; Cell Count Non Hematic 40 %; Lymphocytes 9 %
--- NOTE | 2018-06-29 13:12 | OP ---
DATE OF PROCEDURE: 06/29/2018 SERVICE: Pulmonary Medicine. PROCEDURE: Right-sided pleural drainage with catheter insertion under ultrasound guidance. CONSENT: The risks and benefits of this procedure were explained to the patient. All questions were answered and alternative options explained. STAFF PHYSICIAN: Kris Brasher M.D. MEDICATIONS USED: Lidocaine 2% without epinephrine, a total quantity 7 mL. PREOPERATIVE DIAGNOSES: 1. Dyspnea on exertion. 2. Pleural effusion. POSTPROCEDURE DIAGNOSES: 1. Dyspnea on exertion. 2. Pleural effusion. DESCRIPTION OF PROCEDURE: A timeout was performed by the procedure team and patient. The patient was positively identified using name and date of . The procedure site was marked. Vital sign monitoring was accomplished by noninvasive hemodynamic monitoring, pulse oximetry, and telemetry. In the seated position, the right posterior hemithorax was examined using ultrasound probe. The diaphragm and pleural fluid were easily identified. The skin was prepped and draped in sterile fashion and anesthetized with 2% lidocaine without epinephrine. A finder needle was inserted in the pleural space with return of mildly opaque yellow pleural fluid. A drainage catheter was inserted in the same location, and a total quantity of 1400 mL of pleural fluid was withdrawn by syringe pump technique. A sample was sent for analysis. Evacuation of the fluid was terminated, because the patient had a severe coughing episode and lightheadedness that quickly resolved. At the end of the procedure, estimated pleural pressures, measured by manometry, was -18 cm of pleural fluid. The intact catheter was withdrawn on exhalation and a sterile dressing was applied. The patient had stable vitals throughout the entire procedure. ESTIMATED BLOOD LOSS: Less than 1 mL. COMPLICATIONS: None. MTDD
== END ==
LOC: SDC 08:23
PROVIDERS: ATTEND Internal Medicine
PROC: 0W993ZZ Drainage of Right Pleural Cavity, Percutaneous Approach (ICD-10-PCS; principal; 2018-06-29)
DX: J90 Pleural effusion, not elsewhere classified (principal); I11.0 Hypertensive heart disease with heart failure; I50.32 Chronic diastolic (congestive) heart failure; E78.5 Hyperlipidemia, unspecified; I25.10 Atherosclerotic heart disease of native coronary artery without angina pectoris; D64.9 Anemia, unspecified; F17.200 Nicotine dependence, unspecified, uncomplicated; J43.9 Emphysema, unspecified; Z79.82 Long term (current) use of aspirin; Z79.899 Other long term (current) drug therapy
CPT/HCPCS: 32554; 82945; 83615; 83986; 84157; 85060; 87070; 87116; 87205; 87206; 88112; 88305; 88341; 88342; 89051; J2001

== ENCOUNTER 2018-07-08 13:36 | Emergency (ER) | payer MEDICARE, BC, MEDICAID ==
[2018-07-08 14:16] LABS: #Basophils 0.1 thou/uL (0.0-0.2); #Eosinphils 0.2 thou/uL (0.0-0.7); #Monocytes 0.7 thou/uL (0.11-0.59); #Neutrophils 8.7 thou/uL (1.40-6.50); %Basophils 0.7 % (0.0-1.0); %Eosinophils 2.1 % (0.0-10.0); %Lymphocytes 9.1 % (21.0-51.0); %Monocytes 6.6 % (0.0-10.0); %Neutrophils 81.4 % (42.0-75.0); Hemoglobin 14.5 g/dL (14.0-18.0); Mean Corpuscular HGB CONC 33.1 g/dL (32.0-36.0); Mean Corpuscular Hemoglobin 31.9 pg (27.0-31.0); Mean Corpuscular Volume 96.5 fL (78.0-98.0); Mean Platelet Volume 6.3 fL (7.4-10.4); Platelet Count 496 thou/uL (130-400); RBC Distribution Width 13.1 % (11.5-14.5); Red Blood Cell (RBC) Count 4.53 mill/uL (4.70-6.10); White Blood Cell (WBC) Count 10.7 thou/uL (4.8-10.8)
[2018-07-08 14:30] LABS: ALT (SGPT) 8 U/L (8-55); AST (SGOT) 14 U/L (5-34); Albumin 3.8 g/dL (3.4-4.8); Alkaline Phosphatase 99 U/L (40-150); Anion Gap 18 mmol/L (10-20); BUN (Urea Nitrogen) 11 mg/dL (8.4-25.7); Bilirubin, Total 0.3 mg/dL (0.2-1.2); CK (CPK) 39 U/L (30-200); Calc. Creatinine Clearance 0 mL/min (70-130); Calcium 9.7 mg/dL (7.8-10.44); Carbon Dioxide 23 mmol/L (23-31); Chloride 99 mmol/L (98-107); Estimated GFR-MDRD Greater than 90; Globulin 3.4 g/dL (2.4-3.5); Glucose 112 mg/dL (83-110); Potassium 4.5 mmol/L (3.5-5.1); Protein, Total 7.2 g/dL (5.8-8.1); Sodium 135 mmol/L (136-145)
[2018-07-08 14:34] LABS: CKMB 2.5 ng/mL (0-6.6); Troponin I Less than 0.010 ng/mL (< 0.028)
--- NOTE | 2018-07-08 15:12 | RAD ---
FRONTAL VIEW CHEST: Date: 07/08/18 COMPARISON: 01/15/18. INDICATION: Chest pain. FINDINGS: There is a moderate sized right pleural effusion, new from prior exam. There is diffuse abnormal alve olar and interstitial opacification of the upper to mid right lung. The left lung is hyperinflated. C ardiac silhouette is enlarged. There is prominence of the perihilar regions more pronounced on the ri ght. IMPRESSION: 1. Interval development of moderate right effusion. There is diffuse abnormal parenchymal opacity of the right lung, which may be on the basis of an infectious/inflammatory process. Underlying neoplasm is not excluded. 2. Recommend continued imaging follow-up to confirm resolution. Pulmonary medicine consultation will also prove useful. POS: [facility]
[2018-07-08] MEDS ORDERED: HYDROcodone/Acetaminophen 10/325 mg Tablet ONE ×3 (15:15→16:50)
[2018-07-08] MEDS ORDERED: ISOVUE-370 76%-LOCM 1 ML ONE (15:17)
[2018-07-08] MEDS ORDERED: Doxycycline 100 MG CAP PO SCH (17:00)
--- NOTE | 2018-07-08 18:02 | CT ---
CT ANGIOGRAM OF CHEST PERFORMED WITH INTRAVENOUS CONTRAST ENHANCEMENT WITH 3D RECONSTRUCTIONS: History: Patient complaining of back and chest pain. Lung cancer was discovered last week by history. Generalized body pain with extreme pain in back and ribs. Comparison: CT abdomen/pelvis, 06-08-18 FINDINGS: There is a large right pleural effusion present. There is atelectasis of the right lower lobe. There are interstitial changes seen within the right upper lobe which could representing some interstitial infiltrate. There is a pleural based 6-7 mm right upper lobe pulmonary nodule with some other smaller more peripherally located nodules in the 2-3 mm range. There is a slightly lobular irregular left up per lobe pulmonary nodule. It appears slightly spiculated and is suspicious for a neoplastic process. It measures 15 mm in size. It has a pleural connection in a left perivertebral. No pleural effusion on the left. There are small hilar and mediastinal nodes present which are not definitely pathologically enlarged. The thoracic aorta is normal in caliber. There is atherosclerotic change noted of the descending thor acic aorta. There is good pulmonary artery opacification. There is no CT evidence for pulmonary embolus. There are arthritic changes of the spine. No lytic or blastic bony process is seen. No focal liver ab normalities seen. IMPRESSION: 1. Large right pleural effusion. 2. Interstitial infiltrative appearing changes of the right upper lobe. 3. 1.5 cm spiculated left upper lobe pulmonary nodule. This would be suspicious for neoplasm. There a re some small more peripheral nodes within the right upper lobe. This could be on the basis of infect ious process. 4. No CT evidence for pulmonary embolus. POS: [facility]
--- NOTE | 2018-07-11 14:07 | EKG ---
Test Reason : CP Blood Pressure : / mmHG Vent. Rate : 113 BPM Atrial Rate : 113 BPM P-R Int : 188 ms QRS Dur : 110 ms QT Int : 330 ms P-R-T Axes : 080 114 -19 degrees QTc Int : 452 ms Sinus tachycardia Possible Left atrial enlargement Left posterior fascicular block Possible Inferior infarct , age undetermined Anteroseptal infarct , age undetermined Abnormal ECG Confirmed by HOLA ALCANTARA DO ([id number]), editor book ROLDAN SNEED ([id number]) on 07/11/2018 2:07:25 PM Referred By: Confirmed By:HOLA ALCANTARA DO
== END 2018-07-08 17:09 | disposition home or self-care (01) ==
LOC: ERS 13:36
DX: J18.9 Pneumonia, unspecified organism (principal); M54.5 Low back pain; M54.6 Pain in thoracic spine; J44.9 Chronic obstructive pulmonary disease, unspecified; I25.10 Atherosclerotic heart disease of native coronary artery without angina pectoris; I10 Essential (primary) hypertension; I25.2 Old myocardial infarction; F41.9 Anxiety disorder, unspecified; F32.9 Major depressive disorder, single episode, unspecified; F17.210 Nicotine dependence, cigarettes, uncomplicated; Z79.899 Other long term (current) drug therapy; Z79.82 Long term (current) use of aspirin
CPT/HCPCS: 71045; 71275; 80053; 82550; 82553; 84484; 85025; 93005; 94760

== ENCOUNTER 2018-07-12 10:43 | Outpatient (CLI) | payer MEDICARE, BC, MEDICAID ==
--- NOTE | 2018-07-12 13:56 | MRI ---
MRI BRAIN WITH AND WITHOUT CONTRAST: Date: 07/12/18 HISTORY: Malignant neoplasm of lung. Evaluate for metastasis. TECHNIQUE: Brain MRI is performed with and without intravenous Gadolinium administration. Multisequential, multi planar imaging is performed. FINDINGS: Sagittal postcontrast images could not be obtained due to patient's inability to complete the examina tion. No parenchymal mass, mass effect, or midline shift. Age-appropriate atrophy. Cortical brady-white claude er differentiation is preserved. Ventricles and sulci are patent and symmetric. T2 and FLAIR white matter hyperintensities due to chronic small vessel ischemic changes. Central arterial flow-voids are maintained. Absent restricted diffusion. There is evidence of opacification of bilateral frontal sinuses, right nasal cavity/ethmoid air cells . Adequate aeration of the mastoid air cells. Postcontrast images do not demonstrate any abnormal enhancement of the brain parenchyma. Extrinsic T1 hypointense, FLAIR hyperintense, enhancing focus involving the right frontal calvarium ( axial images 36-40). Corresponding lesion noted on CT of 11/19/13. Atypcial hemangioma is favored. Th ere are postsurgical changes involving both frontal sinuses and frontal calvarium. IMPRESSION: No pathologic enhancement of the brain parenchyma. No evidence of intracranial metastasis. POS: [facility]
== END 2018-07-12 10:44 | disposition home or self-care (01) ==
LOC: BICMRI 10:43
PROVIDERS: ATTEND Internal Medicine Medical Oncology
DX: C34.90 Malignant neoplasm of unspecified part of unspecified bronchus or lung (principal)
CPT/HCPCS: 70553

== ENCOUNTER 2018-07-13 09:25 | Outpatient (CLI) | payer MEDICARE, BC, MEDICAID ==
--- NOTE | 2018-07-13 13:35 | PET ---
PET SCAN WITH CT ATTENUATION CORRECTION: HISTORY: Lung cancer. Diagnosis made from pleural fluid. Examination requested for initial staging. COMPARISON: None. CORRELATION: CT angiogram chest dated 07/08/18. TECHNIQUE: PET scanning with CT attenuation correction is performed from the base of the brain to the proximal t highs following the intravenous administration of 11.2 mCi [id number]. FINDINGS: HEAD/NECK: There is evidence of hypermetabolic right Level V lymph node with a maximum SUV of 2.6. CHEST: There are bilateral hypermetabolic periclavicular lymph nodes. Right periclavicular lymph node has a maximum SUV of 5.4. Left periclavicular lymph node has a maximum SUV of 2.2, which is at the upper li mits of normal. There is no evidence of hypermetabolic activity associated with right-sided pleural effusion. There i s multifocal hypermetabolic activity involving the right upper lobe, middle, and right lower lobe. Re presentative hypermetabolic activity in the right upper lobe is between 3.0 and 3.1. Hypermetabolic a ctivity in the right lower lobe is 4.2. There is an irregular marginated lesion in the left upper lob e with a maximum SUV of 2.0. The size of the lesion may preclude the exact accuracy in terms of the d egree of FDG avidity. Hypermetabolic nodule is favored given the irregular margination. There is evid ence of mediastinal lymphadenopathy. Business Performance [employer]st AP window lymph node has maximum SUV of 5.6, prev ascular lymph node has maximum SUV of 3.5, and subcarinal lymph node has maximum SUV of 5.8. Bilatera l hilar lymphadenopathy with hypermetabolic activity is also suggested. ABDOMEN/PELVIS: There is FDG avidity involving the tip of the right hepatic lobe with a maximum SUV of 4.4. There is also hypermetabolic focus in the right hepatic lobe measuring 4.5. Additional areas of hypermetabolic activity are noted throughout the liver. There is no evidence of hypermetabolic activity associated with either adrenal gland. OSSEOUS STRUCTURES: There is evidence of multifocal osseous metastasis. Business Performance Analyst hypermetabolic focus at T2 has a S UV of 4.4 and at T5 has a SUV of 6.0. IMPRESSION: 1. Right lung malignancy. There is evidence of metastasis within the mediastinum, likely contralater al lung. 2. There is evidence of malignancy involving the osseous structures of the thoracic spine. 3. There is evidence of malignant lymph nodes in the periclavicular region and right neck. POS: [facility]
== END 2018-07-13 09:26 | disposition home or self-care (01) ==
LOC: MRI 09:25
PROVIDERS: ATTEND Internal Medicine Medical Oncology
DX: C34.91 Malignant neoplasm of unspecified part of right bronchus or lung (principal); C79.51 Secondary malignant neoplasm of bone
CPT/HCPCS: 78815; A9552

== ENCOUNTER 2018-07-31 08:30 | Day surgery (SDC) | payer MEDICARE, BC, MEDICAID ==
[2018-07-31] MEDS ORDERED: Sodium Chloride 0.9% 30 ML ONE (08:58)
[2018-07-31 09:21] VITALS: BP 92/54; TEMP 97.5
[2018-07-31] MEDS ORDERED: Dexamethasone 10 MG in Sodium Chloride 0.9% 50 ML IVPB SCH (09:45)
[2018-07-31] MEDS ORDERED: Palonosetron HCl 0.25 MG in Sodium Chloride 0.9% 50 ML IVPB SCH (10:00)
[2018-07-31] MEDS ORDERED: CARBOPLATIN IVPB SCH (10:00)
[2018-07-31] MEDS ORDERED: SODIUM CHLORIDE 0.9% IVPB SCH ×4 (10:00→10:30)
[2018-07-31] MEDS ORDERED: Pembrolizumab 200 MG in Sodium Chloride 0.9% 250 ML 250 ML IV SCH (10:00)
[2018-07-31] MEDS ORDERED: PEMETREXED IVPB SCH ×3 (10:00→10:30)
== END 2018-07-31 09:45 | disposition short-term general hospital (02) ==
LOC: ONC/OP 08:30
PROVIDERS: ATTEND Internal Medicine Medical Oncology
DX: Z51.11 Encounter for antineoplastic chemotherapy (principal); C34.91 Malignant neoplasm of unspecified part of right bronchus or lung; C77.0 Secondary and unspecified malignant neoplasm of lymph nodes of head, face and neck; C78.7 Secondary malignant neoplasm of liver and intrahepatic bile duct; C78.02 Secondary malignant neoplasm of left lung; C78.89 Secondary malignant neoplasm of other digestive organs; F17.210 Nicotine dependence, cigarettes, uncomplicated; I25.119 Atherosclerotic heart disease of native coronary artery with unspecified angina pectoris; Z79.899 Other long term (current) drug therapy
CPT/HCPCS: 99212; G0463; J1100; J2469; J7050; J9045; J9271; J9305

== ENCOUNTER 2018-07-31 10:23 | Emergency (ER) | payer MEDICARE, BC, OTHER ==
[2018-07-31 11:01] LABS: #Eosinphils 0.3 thou/uL (0.0-0.7); #Neutrophils 10.1 thou/uL (1.40-6.50); %Eosinophils 2.2 % (0.0-10.0); %Lymphocytes 7.9 % (21.0-51.0); %Monocytes 7.9 % (0.0-10.0); %Neutrophils 81.9 % (42.0-75.0); Hemoglobin 13.7 g/dL (14.0-18.0); Mean Corpuscular HGB CONC 32.5 g/dL (32.0-36.0); Mean Corpuscular Volume 98.3 fL (78.0-98.0); Mean Platelet Volume 6.7 fL (7.4-10.4); Platelet Count 433 thou/uL (130-400); RBC Distribution Width 15.1 % (11.5-14.5); Red Blood Cell (RBC) Count 4.29 mill/uL (4.70-6.10); White Blood Cell (WBC) Count 12.3 thou/uL (4.8-10.8)
[2018-07-31] MEDS ORDERED: HYDROcodone/Acetaminophen 10/325 mg Tablet ONE (11:56)
--- NOTE | 2018-07-31 12:06 | RAD ---
PORTABLE CHEST ONE VIEW: 07/31/2018 10:46 a.m. HISTORY: Stage for lung cancer. Hypotension. FINDINGS: There has been interval development of complete opacification of the right hemithorax since the exam of 07/08/2018, likely due to a large pleural effusion. There is suggestion of mild mediastinal shift to the left. The left lung is unremarkable. POS: [facility]
[2018-07-31 12:21] LABS: ALT (SGPT) 13 U/L (8-55); AST (SGOT) 17 U/L (5-34); Albumin 3.1 g/dL (3.4-4.8); Alkaline Phosphatase 109 U/L (40-150); Anion Gap 14 mmol/L (10-20); BUN (Urea Nitrogen) 34 mg/dL (8.4-25.7); Bilirubin, Total Less than 0.2 mg/dL (0.2-1.2); Calc. Creatinine Clearance 0 mL/min (70-130); Calcium 9.7 mg/dL (7.8-10.44); Carbon Dioxide 28 mmol/L (23-31); Chloride 92 mmol/L (98-107); Estimated GFR-MDRD Greater than 90; Globulin 2.9 g/dL (2.4-3.5); Glucose 111 mg/dL (83-110); Potassium 4.4 mmol/L (3.5-5.1); Sodium 130 mmol/L (136-145); Troponin I 0.181 ng/mL (< 0.028)
[2018-07-31 12:28] LABS: CKMB 10.7 ng/mL (0-6.6)
[2018-07-31 12:39] LABS: Bilirubin Small (Negative); Blood, Urine Negative (Negative); Clarity CLEAR (Clear); Glucose, Urine (Dipstick) Negative (Negative); Leukocyte Trace (Negative); Nitrite Negative (Negative); Protein, Urine (Dipstick) Negative (Neg-Trace); Specific Gravity, Urine 1.026 (1.002-1.036); Urobilinogen 0.2 mg/dL (0.2-1.0)
[2018-07-31 12:42] LABS: Bacteria/HPF None Seen HPF (None Seen); Hyaline Casts/LPF 4-6 HYALINE CAST LPF (0-3 Hyaline); Pathc Cast-AUWi Flag 0.87 (0-2.49); RBC/HPF 0-3 HPF (0-3); Squamous Epithelial None Seen HPF (0-3); WBC/HPF 0-3 HPF (0-3)
--- NOTE | 2018-07-31 14:01 | CT ---
CT ANGIOGRAM THORAX WITH IV CONTRAST AND 3D RECONSTRUCTIONS: CT ABDOMEN AND PELVIS WITH IV CONTRAST: 07/31/2018 HISTORY: Dyspnea. Stage IV lung cancer. Decreased oxygen saturation. COMPARISON: 07/08/2018 and 06/08/2018 FINDINGS: THORAX: There is now a very large right pleural effusion occupying the entire right hemithorax, with collapse and consolidation of the right lung. Portions of the right upper lobe and right lower lobe bronchi are obliterated. The previously described left upper lobe 1.3 cm pulmonary nodule is again present and similar to prio r exam. A few calcified granulomata are again seen on the left. No filling defects are seen in the pulmonary arteries to suggest a pulmonary embolus. Dense vascular calcifications are again seen in the coronary arteries, as well as involving the thora cic aorta. Atherosclerotic plaque is seen in the descending thoracic aorta. The thoracic aorta is n ot well opacified due to phase of imaging. There is soft tissue density seen in the left hilar region, which may be related to lymphadenopathy. No definite enlarged mediastinal lymph nodes are appreciated. There is mild shift of the mediastina l structures to the left due to very large right pleural effusion. Tiny left pleural effusion is present. There are scattered lytic metastatic lesions seen throughout the thoracic vertebral bodies, involving the T2, T5, T7, and T9, as well as T10, vertebral bodies. The largest lytic lesion is seen involvin g the T2 vertebral body, which measures 1.8 cm, and there is height loss of this vertebral body, joann g the superior endplates, consistent with a pathological fracture. ABDOMEN AND PELVIS: Again noted are left renal cysts with ctp-yvdpf-ou-characterize, subcentimeter, hypodense lesions in each kidney. There are multiple scattered hypodense lesions seen throughout each lobe of the liver, which were not present on prior exam, the largest within the medial aspect of the left hepatic lobe, measuring 1.2 cm, worrisome for metastatic lesions, given interval change from prior study on 06/08/2018. Calcified granulomata are seen in the spleen. The pancreas and bilateral adrenal glands demonstrate a normal CT appearance. Prominent atherosclerotic plaque and calcifications are seen in the abdominal aorta and involving the iliac arteries. The common duct is dilated, measuring 1.3 cm, of uncertain etiology. Lack of intraperitoneal fat limits evaluation on this exam, but no definitive enlarged lymph nodes ar e appreciated. An approximately 1 cm lytic lesion is now present within the posterior and superior aspect of the rig ht iliac bone, which was not present on prior study. There is a small to moderate amount of retained fecal material seen throughout the colon, suggesting an element of constipation. Vascular calcifications and irregular atherosclerotic plaque are seen in the abdominal aorta and involving the iliac arteries. There is diffuse subcutaneous edema involving the chest and abdomen, related to anasarca. IMPRESSION: 1. Large right pleural effusion, occupying the entire right hemithorax with collapse of the right trudy ng. 2. Left upper lobe pulmonary nodule, stable from prior exam. 3. Osseous metastatic disease involving the thoracic vertebral bodies, as well as the right iliac bone. The largest lytic lesion involves the T2 vertebral body, with an as sociated pathological fracture and height loss of the vertebral body. 4. Interval development of hypodense lesions within each lobe of the liver, suggesting metastatic di sease. 5. Stable left upper lobe pulmonary nodule. 6. No CT evidence of a pulmonary embolus. 7. Generalized anasarca. 8. The remainder of the findings are as described above, including mildly prominent left hilar and pr evascular space lymph nodes, suggesting lymphadenopathy. POS: [facility]
[2018-07-31] MEDS ORDERED: Iopamidol 370 76% 100 ML VIAL ONE (15:53)
== END 2018-07-31 14:12 | disposition left against medical advice (07) ==
LOC: ERS 10:23
DX: J90 Pleural effusion, not elsewhere classified (principal); R79.89 Other specified abnormal findings of blood chemistry; I95.9 Hypotension, unspecified; C34.90 Malignant neoplasm of unspecified part of unspecified bronchus or lung; J44.9 Chronic obstructive pulmonary disease, unspecified; I25.10 Atherosclerotic heart disease of native coronary artery without angina pectoris; I25.2 Old myocardial infarction; F41.9 Anxiety disorder, unspecified; F32.9 Major depressive disorder, single episode, unspecified; F17.210 Nicotine dependence, cigarettes, uncomplicated; Z79.899 Other long term (current) drug therapy; Z79.82 Long term (current) use of aspirin
CPT/HCPCS: 71045; 71275; 74177; 80053; 82553; 83605; 84484; 85025; 87040; 93005; 94760; G0463; 81003; 81015; 96360; 99212; J1100; J2469; J7050; J9045; J9271; J9305

== ENCOUNTER 2018-08-02 08:36 | Observation (INO) | payer MEDICARE, BC, MEDICAID ==
[2018-08-02] MEDS ORDERED: Lidocaine 1% (PF) 30 ML VIAL ONE (13:56)
[2018-08-02] MEDS ORDERED: HYDROcodone/Acetaminophen 10/325 mg Tablet PO PRN (15:21)
[2018-08-02] MEDS ORDERED: Pembrolizumab 200 MG in Sodium Chloride 0.9% 250 ML 250 ML IV SCH (16:30)
[2018-08-02 16:40] LABS: Pleural Fluid, Glucose 95 mg/dL; Pleural Fluid, LDH 547 U/L (Not Available)
--- NOTE | 2018-08-02 16:49 | PRG ---
DATE OF SERVICE: 08/02/2018 SERVICE: Pulmonary Medicine. INTERVAL HISTORY: The patient is a 73-year-old white male who is well known to me. He is being cons idered for initiation of chemotherapy. He was placed in inpatient observation to initiate chemothera py, but her sats were in the 70s. He was found to have a large pleural effusion causing significant atelectasis of the right lung. As such, I was consulted to see if I could do a thoracentesis to impr ove the patient's oxygenation so that he can move forward with chemotherapy as previously directed. Otherwise, he is in his usual state of health. He denies any significant cough, sputum production, f michelle, chills, night sweats. His weight is extremely poor. He is not able to swallow and has signif icant dysphagia. PHYSICAL EXAMINATION: VITALS: Afebrile, pulse 104, blood pressure 122/71, respirations 20, saturation 100% on room air. GENERAL: The patient is awake, alert, in no apparent distress. LUNGS: Excellent air entry. There is no prolonged expiratory phase, wheezing, rhonchi, or crackles present. HEART: Normal rate, regular. ABDOMEN: Soft, nontender, nondistended. Bowel sounds are positive. MUSCULOSKELETAL: No cyanosis or clubbing. No pitting in the bilateral lower extremities. NEUROLOGIC: Grossly nonfocal. REVIEW OF SYSTEMS: General, head, ears, eyes, nose, throat, cardiovascular, respiratory, GI, , mus culoskeletal, neurologic and skin is negative except as mentioned in the HPI. IMAGING: CTA of the chest demonstrates a large right-sided pleural effusion, and no evidence of pulm onary emboli. Dense atelectasis of the entirety of the right lung is present. Left upper lobe pulmo nary nodule, stable compared to prior. Osseous lesions are identified involving the thoracic vertebr al bodies. Bilateral liver lesions are present. Generalized anasarca is noted. LABORATORIES: WBC 12.3, hemoglobin 13.7, platelets 433,000. Sodium 130. Basic metabolic profile is essentially unremarkable. Liver function studies are also unremarkable. His albumin is 3.1 and his total protein is low at 6.0. ASSESSMENT: 1. Acute hypoxic respiratory failure. 2. Malignant pleural effusion. 3. Anasarca state. PLAN: I will proceed with thoracentesis. I will repeat studies to verify that we are still dealing with a malignant process. The anasarca state is likely secondary to severe protein calorie malnutrition. W e need to find a way to increase the patient's p.o. intake. If the patient remains in house, Pulmona ry Critical Care will continue to follow.
[2018-08-02 16:54] LABS: Body Fluid Source THORACENTESIS FLD
[2018-08-02 16:55] VITALS: BMI 16.1
[2018-08-02 16:55] LABS: BF Color Yellow; Clarity Clear (Clear); Tube # EDTA; WBC Background Count 0.01; WBC/NonHematic-Auto 256 /cumm
[2018-08-02 16:57] LABS: BF RBC Count - Manual 108 /cumm
[2018-08-02 17:15] LABS: BF Segmented Neutrophils 5 %; Cell Count Non Hematic 74 %; Lymphocytes 21 %
--- NOTE | 2018-08-02 17:37 | PDOC.EVN ---
Event Note - Event Note Event Note: ACP event note: Discussed current metastatic lung adenocarcinoma Stage IV with patient, and brother. Pt understands the gravity of the situation and understands the poor prognosis despite treatment. Discussed palliative options, continuing immunotherapy and consideration for hospice. Family wishing to pursue immunotherapy at this time. Pt and family also wishing to continue Full Code status and understand the poor likelihood of a successful outcome with resuscitation. Pt and family verbalize understanding regarding current disease process. Total ACP time 25min
[2018-08-02 17:56] VITALS: BP 131/70; TEMP 97.4
--- NOTE | 2018-08-02 19:06 | OP ---
DATE OF PROCEDURE: 08/02/2018 SERVICE: Pulmonary Medicine. PROCEDURE: Right-sided pleural drainage with catheter insertion under ultrasound guidance. CONSENT: Risks and benefits of the procedure were explained to the patient. All questions were answ ered and alternative options explained. STAFF PHYSICIAN: Kris Brasher M.D. MEDICATIONS: 1% without epinephrine, total quantity 10 mL PREOPERATIVE DIAGNOSES: 1. Acute hypoxic respiratory failure. 2. Malignant pleural effusion. POSTPROCEDURE DIAGNOSES: 1. Acute hypoxic respiratory failure. 2. Malignant pleural effusion. DESCRIPTION OF PROCEDURE: A timeout was performed by the procedure team and patient. The patient wa s positively identified using name and date of . The procedure site was marked. Vital sign mon itoring was accomplished by noninvasive hemodynamic monitoring, pulse oximetry and telemetry. In the seated position, the right posterior hemithorax was examined using ultrasound probe. The diaphragm and pleural fluid were easily identified. The skin was prepped and draped in sterile fashion and ane sthetized with 1% lidocaine without epinephrine. A finder needle was inserted in the pleural space w ith return of clear yellow pleural fluid. A pleural drainage catheter was inserted in the same locat ion and a total quantity of 2000 mL of pleural fluid was withdrawn by syringe pump technique. [facility]. Evacuation of the fluid was terminated because the patient had pleuritic c hest discomfort that was initially episodic, but became constant. At the end of the procedure, estim ated pleural pressures, measured by manometry, was -16 cm of pleural fluid. The intact catheter was withdrawn on exhalation and a sterile dressing was applied. The patient had stable vitals throughout the entire procedure. ESTIMATED BLOOD LOSS: Less than 1 mL COMPLICATIONS: None.
--- NOTE | 2018-08-02 23:20 | SS ---
DATE OF ADMISSION: 08/02/2018 PRIMARY CARE PHYSICIAN: Néstor Castañeda M.D. PRIMARY ONCOLOGIST: Marya Lyon M.D. CHIEF COMPLAINT: Shortness of breath. HISTORY OF PRESENT ILLNESS: This is a 73-year-old male who presents to [facility] ncology unit with recurrent right pleural effusion. The patient's history is significant for poorly differentiated metastatic adenocarcinoma of the lung involving the spine, liver and pelvis. The darin ent has been followed by Dr. Lyon with Medical Oncology Services, undergoing immunotherapy with K eytruda. The patient recently underwent CT imaging of the abdomen and pelvis on 07/31/2018 confirmin g metastatic processes involving the thoracic vertebral bodies, right iliac bone as well as liver les ions consistent with metastatic process. The patient was also noted with large right pleural effusio n occupying the entire right hemithorax with collapse of the right lung. The patient was referred to Oncology Service undergoing evaluation by Pulmonology Service with thoracentesis performed removing 2 liters of effusion. The patient denied any specific fever, but does relate difficulty taking a getachew p breath, some difficulty swallowing different types and textures of food as well as general weakness and profound weight loss. The patient also had noticed increasing swelling of his lower extremities and feet. PAST MEDICAL HISTORY: 1. 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 2. Severe protein calorie malnutrition. 3. Tobacco abuse, ongoing. 4. Chronic obstructive pulmonary disease. 5. Chronic diastolic heart failure. 6. Hypertension. 7. Dyslipidemia. 8. Coronary artery disease. 9. Benign prostatic hypertrophy. 10. Major depressive disorder. 11. Chronic back pain. PAST SURGICAL HISTORY: 1. Status post cardiac catheterization x4 with multiple percutaneous coronary interventions. 2. Status post sinus surgery x2. 3. Status post thoracentesis x2. CURRENT MEDICATIONS: 1. Enteric coated aspirin 81 mg p.o. daily. 2. Pepcid 20 mg p.o. daily. 3. Lasix 40 mg p.o. b.i.d. 4. Hydrocodone 10/325 mg 1 tab p.o. q.6 hours p.r.n. pain. 5. Nitro-Dur 0.6 mg topically t.i.d. p.r.n. 6. MiraLax 17 grams p.o. daily. 7. Flomax 0.4 mg p.o. daily. 8. Trazodone 100 mg p.o. daily. 9. Effexor 75 mg p.o. daily. ALLERGIES: No known drug allergies. FAMILY HISTORY: Positive for diabetes mellitus and chronic kidney disease. SOCIAL HISTORY: The patient is , accompanied by his and brother in the hospital. Smokes up to half a pack daily with [id number] history. No alcohol or illicit drug use. 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 REVIEW OF SYSTEMS: The following complete review of systems was negative, unless otherwise mentioned in the HPI or below: Constitutional: Weight loss or gain, ability to conduct usual activities. Sk in: Rash, itching. Eyes: Double vision, pain. ENT/Mouth: Nose bleeding, neck stiffness, pain, te nderness. Cardiovascular: Palpitations, dyspnea on exertion, orthopnea. Respiratory: Shortness of breath, wheezing, cough, hemoptysis, fever or night sweats. Gastrointestinal: Poor appetite, abdom inal pain, heartburn, nausea, vomiting, constipation, or diarrhea. Genitourinary: Urgency, frequenc y, dysuria, nocturia. Musculoskeletal: Pain, swelling. Neurologic/Psychiatric: Anxiety, depressio n. Allergy/Immunologic: Skin rash, bleeding tendency. Otherwise negative except as stated per HPI. PHYSICAL EXAMINATION: VITAL SIGNS: On admission, blood pressure 122/71, pulse 104, respiratory rate 20, temperature 97.5 degrees Fahrenheit, O2 saturation 100% on room air. GENERAL APPEARANCE: This is a cachectic 73-year-old male, alert, responding slowly to questions, in no acute distress. HEENT: Pupils are equal, round and reactive to light and accommodation. Extraocular muscles are int act. No scleral icterus. No conjunctival injection. Nares patent. OP is clear. Teeth in poor rep air. NECK: Supple. No cervical adenopathy, no thyromegaly, no carotid bruits, no JVD appreciated. Cervi mara spine with full active and passive range of motion. No meningeal signs noted. CHEST: Diminished breath sounds in the majority of the right hemithorax. Left lung lynn clear to auscultation. CARDIOVASCULAR: S1, S2 without noted murmur, rub or gallop. Heart sounds are distant. ABDOMEN: Scaphoid, nontender, nondistended. Bowel sounds are positive in all 4 quadrants. No palpa ble mass. EXTREMITIES: Warm and dry with fair turgor. Pitting edema to the proximal shins with bilateral foot edema noted. Pulses are palpable distally at the dorsalis pedis, posterior tibial and popliteal art eries bilaterally. Capillary refill less than 2 seconds. MUSCULOSKELETAL: Severe muscle atrophy globally. NEUROLOGIC: Cranial nerves II-XII are grossly intact. There are no focal or lateralizing signs appr eciated. PERTINENT LABORATORY AND X-RAY FINDINGS: Basic metabolic profile from 07/31/2018 showed sodium 130, potassium 4.4, chloride 92, CO2 of 28, BUN 34, creatinine 0.83, glucose 111. Lactic acid level 1.6, calcium is 9.7. LFTs within normal limits. Lactate dehydrogenase 445, 07/25/2018. Albumin 3.1. CB C dated 07/31/2018 showed a white blood cell count of 12.3, hemoglobin 13.7, hematocrit 42.2, platele t count 433,000. Portable chest x-ray dated 07/31/2018 showed complete opacification of the right he mithorax consistent with large pleural effusion. Mild mediastinal shift to the left. CT angiogram o f the chest dated 07/31/2018 showed large right pleural effusion occupying the entire right hemithora x with collapse of the right lung. Left upper lobe pulmonary nodule, stable from prior exam. Osseou s metastatic process of the thoracic vertebral bodies and liver. No evidence for pulmonary embolus. Generalized anasarca noted. CT of the abdomen and pelvis showed same findings as stated previously under CT angiogram. ASSESSMENT AND PLAN: 1. Right pleural effusion of the entire right hemithorax. The patient was observed on the Medical O ncology unit. Pulmonology consulted for thoracentesis with removal of 2 liters of fluid. Symptomati renetta, the patient improved with thoracentesis without evidence of hypoxia. Likely effusion will con tinue to recur given the patient's stage 4 lung adenocarcinoma. 2. Metastatic poorly differentiated adenocarcinoma of the lung. Discussed with the patient overall poor prognosis and options regarding treatment versus palliative measures. Family wishing to pursue attempts at immunotherapy currently. 3. Severe protein-calorie malnutrition. Recommend increased intake of protein, such as Ensure or Vladimir ost t.i.d. Suspect protein calorie malnutrition will continue progress given the patient's advanced adenocarcinoma of the lung. 4. Tobacco abuse. Ongoing. 5. Lower extremity edema. Secondarily to severe protein calorie malnutrition as well as component o f large right pleural effusion with decreased venous return. 6. Lasix 40 mg b.i.d. p.r.n. 7. Prophylaxis. No sequential compression devices due to lower extremity edema. 8. Code status is full. Surrogate medical decision maker is the patient's spouse. DISPOSITION: Discharged home after infusion of Keytruda with followup with Dr. Lyon in 3 weeks.
== END 2018-08-02 18:16 | disposition home or self-care (01) ==
LOC: ONC 12:12
PROVIDERS: ADMIT Family Medicine; ATTEND Family Medicine
PROC: 0W993ZX Drainage of Right Pleural Cavity, Percutaneous Approach, Diagnostic (ICD-10-PCS; principal; 2018-08-02)
DX: J96.01 Acute respiratory failure with hypoxia (principal); J91.0 Malignant pleural effusion; E78.5 Hyperlipidemia, unspecified; I11.0 Hypertensive heart disease with heart failure; I50.32 Chronic diastolic (congestive) heart failure; I25.110 Atherosclerotic heart disease of native coronary artery with unstable angina pectoris; C34.91 Malignant neoplasm of unspecified part of right bronchus or lung; C77.0 Secondary and unspecified malignant neoplasm of lymph nodes of head, face and neck; C78.7 Secondary malignant neoplasm of liver and intrahepatic bile duct; C78.2 Secondary malignant neoplasm of pleura; C78.02 Secondary malignant neoplasm of left lung; C79.51 Secondary malignant neoplasm of bone; F17.210 Nicotine dependence, cigarettes, uncomplicated; F32.9 Major depressive disorder, single episode, unspecified; Z79.899 Other long term (current) drug therapy
CPT/HCPCS: 32554; 82945; 83615; 83986; 87070; 87205; 88112; 88305; 89051; 96413; G0379; J9271; 85060; J2001; J7050

== ENCOUNTER 2018-08-07 03:01 | Emergency (ER) | payer MEDICARE, BC, MEDICAID ==
[~2018-08-07 03:01] MED LIST changes: +Calcium Chloride 1 GM/10 ML Abboject SYRINGE ONE; +EPINEPHrine 1 MG/10 ML Abboject SYRINGE ONE; -Lidocaine 2% 10 ML INJ ONE; -Lidocaine 2% PF 5 ML VIAL ONE; +Magnesium 5 GM/10 ML Abboject SYRINGE ONE; +Sodium Bicarb 50 MEQ/50 ML Abboject 8.4% SYRINGE ONE
[2018-08-07] MEDS ORDERED: Ondansetron ODT 4 MG TAB ONE (03:38)
== END 2018-08-07 03:46 | disposition expired ==
LOC: ERS 03:01
DX: I46.9 Cardiac arrest, cause unspecified (principal); F41.9 Anxiety disorder, unspecified; F32.9 Major depressive disorder, single episode, unspecified; I25.10 Atherosclerotic heart disease of native coronary artery without angina pectoris; I10 Essential (primary) hypertension; F17.210 Nicotine dependence, cigarettes, uncomplicated; J44.9 Chronic obstructive pulmonary disease, unspecified; Z71.6 Tobacco abuse counseling
CPT/HCPCS: 31500; 92950; 96374; 96375; 96376; 99406; J0171; J0282; J3475; Q0162